=== PATIENT | male | born 1955 | race Caucasian/White ===

== ENCOUNTER → 2024-03-03 | Day surgery (SDC) | payer MEDICARE, OTHER ==
[~2024-03-03] MED LIST: ACETAMINOPHEN 1000 MG/100 ML IV ONE; BACITRACIN ZINC 15 GM OINT ONE; CEFPROZIL250 MG PO; DEXAMETHASONE SOD PHOS INJ 4 MG/ML SDV ONE; EPHEDRINE SULFATE INJ 50 MG/ML VIAL ONE; FENTANYL CITRATE/PF 100MCG/2 ML INJ ONE; FLOMAX0.4 MG PO; LEVOTHYROXINE100 MC1 PO; LIDOCAINE 1% W/EPINEPHRINE 20 ML VIAL ONE; LIDOCAINE HCL 2% LOCAL INJ 5 ML SDV VIAL INJ ONE; MELOXICAM7.5 MG PO; METFORMIN HCL500 MG PO; ONDANSETRON HCL INJ 2MG/ML 2ML 2 MG/ML VIAL ONE; PROPOFOL IV EMULSION 10 MG/ML 20 ML VIAL ONE; SEVOFLURANE INHAL SOLN 250 ML PEN BTL ONE; VALSARTAN320 MG PO
[2024-03-03] MEDS: LACTATED RINGER'S 1,000 ML ONE (07:56)
[2024-03-03 10:46] VITALS: TEMP 97.4
[2024-03-03 11:32] VITALS: BP 143/91; PULSE 58; RESP 18; O2SAT 98
== END | disposition home or self-care (01) ==
LOC: OR 06:08
PROVIDERS: ATTEND Otolaryngology Otolaryngology/Facial Plastic Surgery
DX: C44.329 Squamous cell carcinoma of skin of other parts of face (principal); C44.319 Basal cell carcinoma of skin of other parts of face; E11.9 Type 2 diabetes mellitus without complications; E03.9 Hypothyroidism, unspecified; F17.220 Nicotine dependence, chewing tobacco, uncomplicated; Z79.60 Long term (current) use of unspecified immunomodulators and immunosuppressants; Z79.1 Long term (current) use of non-steroidal anti-inflammatories (NSAID); Z79.84 Long term (current) use of oral hypoglycemic drugs; Z79.899 Other long term (current) drug therapy; Z92.3 Personal history of irradiation
CPT/HCPCS: 11642; 11643; 11644; 71046; 88305; 93005; J0131; J1100; J2003; J2405; J2704; J3010; J7121; 88304